=== PATIENT | male | born 1960 | race Caucasian/White ===

== ENCOUNTER → 2021-09-01 10:17 | Outpatient (BNVA) | payer BC, SELFPAY | PROVIDERS: PCP Internal Medicine; Visit Provider Urology ==

== ENCOUNTER → 2022-07-07 13:46 | Outpatient (BNVA) | payer SELFPAY | PROVIDERS: PCP Internal Medicine; Visit Provider Urology | DX: Z13.89 Encounter for screening for other disorder (principal) ==

== ENCOUNTER 2023-01-04 11:37 | Outpatient (REF) | payer OTHER, SELFPAY | END 2023-01-04 11:38 | disposition home or self-care (01) | LOC: HO.LAB 11:37 | PROVIDERS: PCP Internal Medicine; Visit Provider Urology | DX: Z12.5 Encounter for screening for malignant neoplasm of prostate (principal); R97.20 Elevated prostate specific antigen [PSA] | CPT/HCPCS: 36415; 84153 ==

== ENCOUNTER 2023-01-17 11:17 | Outpatient (AMB) | payer MEDICARE, SELFPAY ==
--- NOTE | 2023-01-17 11:33 | MHC.OFFVIS ---
Intake Intake Visit Reasons: 6M PSA(set) Intake Note: Patient is present for Follow Up PSA Urology Med: Finasteride, Sildenfil Antibiotic Allergy: Sulfa antibiotics Blood Thinner: None Allergies Sulfa Allergy (Unknown, Uncoded 01/17/23 11:34) Unknown Medication List - Last Reconciled 01/17/23 by Dominick Jean-Baptiste MD finasteride 5 mg PO .QOD 90 days metoprolol succinate ER mg PO sildenafil 100 mg PO ONCE PRN 30 days HPI HPI Comments History of Present Illness Details Nitesh CASTAÑEDA is a very pleasant male. He is a patient of Dr Willoughby. They are seen in the office today for the following urologic conditions. - elevated PSA - erectile dysfunction Great response to finasteride PSA fell significantly from 4.9-1.7 Cut back to every other day Repeat PSA in 6 months Refill sildenafil prescription Elevated PSA PSA 4.1 PSA 07/24 4.1, 12/22 4.1, free 30%, 06/23 4.9, 01/22 1.7 Family history of BPH Minimal urinary symptoms MANUEL normal 2+ Repeat PSA confirms lab reading and high end of normal. Stable past 6 months Microscopic Hematuria:? Full evaluation 2020 ?Cytology in imaging normal ?Cystoscopy with prominent median bar. Discussed prostate symptomatolog ? Microscopic hematuria was diagnosed during?routine UA.? They are here for the?discussion of imaging findings.? Since the last visit the patient has?has not noticed gross hematuria, does not test positive for microscopic hematuria.? Relevant medical history for?no pertinent medical history, no workplace exposures, UTI's, tobacco use.? Radiographic imaging:?US renal normal with PCP.? Other investigations?04/20 cytology, normal.? Cystoscopy findings?09/19 , normal - high median bar.? [facility] Medical History Erectile dysfunction HTN (hypertension) Microscopic hematuria Thyroid nodule Review of Systems Const Denies chills and Denies fever(s) Card Reports no additional complaints and Denies syncope Resp Denies cough GI Denies abdominal pain and Denies heartburn Reports as per HPI and Denies change in libido Neuro Denies syncope Psych Denies change in libido Endo Denies change in libido Physical Exam Const General: cooperative, healthy appearing, comfortable and no acute distress Orientation/consciousness: patient oriented x3 HEENT Face and sinus: Yes normal facial exam Mouth: moist mucous membranes Neck Neck: Yes normal visual inspection, Yes full ROM and Yes trachea midline Chest Chest palpation & inspection: normal inspection of the chest Resp Effort & Inspection: normal respiratory effort, able to speak in complete sentences and no respiratory distress GI Inspection: Yes normal to inspection Back/Spine/Pelvis Cervical Spine: normal cervical lordosis Thoracic/Lumbar Spine: thoracic and lumbar spine normal to inspection Skin General skin exam: no rashes or lesions noted Neuro General: patient oriented x3, gait normal, tone normal and moves all extremities Extrem General: Yes normal to inspection and Yes capillary refill normal Assessment & Plan Assessment & Plan (1) Erectile dysfunction: Code(s): N52.9 - Male erectile dysfunction, unspecified (2) Elevated PSA: Code(s): R97.20 - Elevated prostate specific antigen [PSA] Plan Six month follow-up PSA Orders: Orders Prostate Specific Antigen 6 Months R97.20 - Elevated prostate specific antigen [PSA] Patient Instructions: Imaging studies, laboratory and physical exam results were discussed and reviewed in detail. No major barriers to patient understanding were identified. An opportunity to ask questions regarding the treatment plan was provided. All questions were answered. The patient expressed understanding and agreement with the above treatment plan. The patient is aware they should contact our office by phone for worsening of their current condition or the appearance of new urologic symptoms. Compliance is encouraged with any medications and followup testing that is ordered. It is a privilege to participate in the urologic care of your patient. If you have any questions or concerns regarding treatment for the above conditions, or other urologic issues, please do not hesitate to contact me. The office telephone contact is [phone]. This note is constructed using voice recognition software. While every effort has been made to ensure accuracy personal development coach errors may have been included. Yours sincerely, Dr Dominick Jean-Baptiste MD, [facility] - Urology Providers of Expert, Compassionate Care for the Genitourinary System Coding Level of Care Code Est Pt Level 3 (69049) Diagnoses Erectile dysfunction N52.9 Elevated PSA R97.20
== END 2023-01-17 12:07 | disposition home or self-care (01) ==
PROVIDERS: Visit Provider Urology
DX: N52.9 Male erectile dysfunction, unspecified (principal); R97.20 Elevated prostate specific antigen [PSA]
CPT/HCPCS: 99213

== ENCOUNTER → 2023-01-17 11:17 | Outpatient (BNVA) | payer MEDICARE, SELFPAY | PROVIDERS: Visit Provider Urology | DX: N52.9 Male erectile dysfunction, unspecified (principal); R97.20 Elevated prostate specific antigen [PSA] | CPT/HCPCS: 99212 ==

== ENCOUNTER 2023-07-20 08:18 | Outpatient (AMB) | payer MEDICARE, SELFPAY ==
--- NOTE | 2023-07-20 08:23 | MHC.OFFVIS ---
Intake Intake Visit Reasons: 6M PSA(set) Intake Note: Patient is Present for Follow Up PSA Urology Medication: Finasteride, Sildenafil (Patient states he needs refill on both medications) Antibiotic Allergies: None Blood Thinners: None Allergies Sulfa Allergy (Unknown, Uncoded 07/20/23 08:26) Unknown Medication List - Last Reconciled 07/20/23 by Dominick Jean-Baptiste MD finasteride 5 mg PO .QOD 90 days metoprolol succinate ER mg PO sildenafil 100 mg PO ONCE PRN 30 days HPI HPI Comments History of Present Illness Details Nitesh CASTAÑEDA is a very pleasant male. He is a patient of Dr Willoughby. They are seen in the office today for the following urologic conditions. - elevated PSA - erectile dysfunction Follow-up on every other day finasteride Slight PSA rise from 1.7-2.5 Continue to follow Continued response to sildenafil Elevated PSA PSA 4.1 PSA 07/24 4.1, 12/22 4.1, free 30%, 06/23 4.9, 01/22 1.7, 06/24 2.5 Family history of BPH Minimal urinary symptoms MANUEL normal 2+ Repeat PSA confirms lab reading and high end of normal. Stable past 6 months Erectile dysfunction Uses demand sildenafil Microscopic Hematuria:? Full evaluation 2020 ?Cytology in imaging normal ?Cystoscopy with prominent median bar. Discussed prostate symptomatolog ? Microscopic hematuria was diagnosed during?routine UA.? They are here for the?discussion of imaging findings.? Since the last visit the patient has?has not noticed gross hematuria, does not test positive for microscopic hematuria.? Relevant medical history for?no pertinent medical history, no workplace exposures, UTI's, tobacco use.? Radiographic imaging:?US renal normal with PCP.? Other investigations?04/20 cytology, normal.? Cystoscopy findings?09/19 , normal - high median bar.? PFSH Medical History Thyroid nodule HTN (hypertension) Erectile dysfunction Microscopic hematuria Assessment & Plan Assessment & Plan (1) Elevated PSA: Code(s): R97.20 - Elevated prostate specific antigen [PSA] (2) Erectile dysfunction: Code(s): N52.9 - Male erectile dysfunction, unspecified Plan Six-month follow-up Orders: Orders Prostate Specific Antigen 6 Months R97.20 - Elevated prostate specific antigen [PSA] Patient Instructions: Imaging studies, laboratory and physical exam results were discussed and reviewed in detail. No major barriers to patient understanding were identified. An opportunity to ask questions regarding the treatment plan was provided. All questions were answered. The patient expressed understanding and agreement with the above treatment plan. The patient is aware they should contact our office by phone for worsening of their current condition or the appearance of new urologic symptoms. Compliance is encouraged with any medications and followup testing that is ordered. It is a privilege to participate in the urologic care of your patient. If you have any questions or concerns regarding treatment for the above conditions, or other urologic issues, please do not hesitate to contact me. The office telephone contact is [phone]. This note is constructed using voice recognition software. While every effort has been made to ensure accuracy priming powder premix blender errors may have been included. Yours sincerely, Dr Dominick Jean-Baptiste MD, [facility] - Urology Providers of Expert, Compassionate Care for the Genitourinary System Coding Level of Care Code Est Pt Level 3 (05645) Diagnoses Elevated PSA R97.20 Erectile dysfunction N52.9
== END 2023-07-20 09:00 | disposition home or self-care (01) ==
PROVIDERS: PCP Internal Medicine; Visit Provider Urology
DX: R97.20 Elevated prostate specific antigen [PSA] (principal); N52.9 Male erectile dysfunction, unspecified
CPT/HCPCS: 99213

== ENCOUNTER → 2023-07-20 08:18 | Outpatient (BNVA) | payer MEDICARE, SELFPAY | PROVIDERS: PCP Internal Medicine; Visit Provider Urology | DX: R97.20 Elevated prostate specific antigen [PSA] (principal); N52.9 Male erectile dysfunction, unspecified | CPT/HCPCS: 99212 ==

== ENCOUNTER 2024-01-18 08:47 | Outpatient (AMB) | payer MEDICARE, SELFPAY ==
--- NOTE | 2024-01-18 08:48 | MHC.OFFVIS ---
Intake Visit Reasons: 6M PSA(set) Stitch Bonding Machine Drawer In Required: No Allergies Sulfa Allergy (Unknown, Uncoded 01/18/24 08:48) Unknown Medication List - Last Reconciled 01/18/24 by Dominick Jean-Baptiste MD finasteride 5 mg PO .QOD 90 days metoprolol succinate ER mg PO sildenafil 100 mg PO ONCE PRN 30 days HPI Comments Details: Nitesh CASTAÑEDA is a very pleasant male. He is a patient of Dr Willoughby. They are seen in the office today for the following urologic conditions. - elevated PSA - erectile dysfunction Telemedicine Evaluation 15 min Consultation Ensequence Florecita Video Follow-up on every other day finasteride PSA remains in range Continue to follow Continued response to sildenafil - discuss increased dosing required Updated family history since father had prostate cancer Elevated PSA PSA 07/24 4.1, 12/22 4.1, free 30%, 06/23 4.9, 01/22 1.7, 06/24 2.5. 12/24 2.9 Family history of BPH Minimal urinary symptoms - effective stream, nocturia 1-2x MANUEL normal 2+ Repeat PSA confirms lab reading and high end of normal. Stable past 6 months Erectile dysfunction Uses on demand sildenafil Microscopic Hematuria:? Full evaluation 2019 ?Cytology in imaging normal ?Cystoscopy with prominent median bar. ? Microscopic hematuria was diagnosed during?routine UA.? They are here for the?discussion of imaging findings.? Since the last visit the patient has?has not noticed gross hematuria, does not test positive for microscopic hematuria.? Relevant medical history for?no pertinent medical history, no workplace exposures, UTI's, tobacco use.? Radiographic imaging:?US renal normal with PCP.? Other investigations?04/20 cytology, normal.? Cystoscopy findings?09/19 , normal - high median bar FHX - father prostate with prostate cancer 71 PFSH Medical History Thyroid nodule HTN (hypertension) Erectile dysfunction Microscopic hematuria Review of Systems Const Denies chills and Denies fever(s) Card Reports no additional complaints and Denies syncope Resp Denies cough GI Denies abdominal pain and Denies heartburn Reports as per HPI and Denies change in libido Neuro Denies syncope Psych Denies change in libido Endo Denies change in libido Physical Exam Const General: cooperative, healthy appearing, comfortable and no acute distress Orientation/consciousness: patient oriented x3 HEENT Face and sinus: Yes normal facial exam Mouth: moist mucous membranes Neck Neck: Yes normal visual inspection, Yes full ROM and Yes trachea midline Chest Chest palpation & inspection: normal inspection of the chest Resp Effort & Inspection: normal respiratory effort, able to speak in complete sentences and no respiratory distress GI Inspection: Yes normal to inspection Back/Spine/Pelvis Cervical Spine: normal cervical lordosis Thoracic/Lumbar Spine: thoracic and lumbar spine normal to inspection Skin General skin exam: no rashes or lesions noted Neuro General: patient oriented x3, gait normal, tone normal and moves all extremities Extrem General: Yes normal to inspection and Yes capillary refill normal Telehealth Telehealth Telehealth Platform: Ensequence Location of provider rendering services: practice address Location of patient: address on file Patient Identification confirmed using: Name, : Yes Telehealth method: video Patient verbally consented to treatment: Yes Patient verbally consented to billing insurance company: Yes Patient informed of any privacy concerns related to visit: Yes Minutes spent on Phone/Video with Pt.: 15 Assessment & Plan Assessment & Plan (1) Erectile dysfunction: Code(s): N52.9 - Male erectile dysfunction, unspecified Category: Medical (2) Elevated PSA: Code(s): R97.20 - Elevated prostate specific antigen [PSA] Category: Medical Plan Six-month follow-up PSA Refill Orders: Orders Prostate Specific Antigen 6 Months R97.20 - Elevated prostate specific antigen [PSA] Medications: Refilled finasteride Take Monday, Monday, Monday 5 mg PO .QOD 90 days 45 tabs 1RF N13.8 - Other obstructive and reflux uropathy, N40.1 - Benign prostatic hyperplasia with lower urinary tract symptoms, R97.20 - Elevated prostate specific antigen [PSA] sildenafil 100 mg PO ONCE 30 days PRN 30 tabs 1RF sexual activity R97.20 - Elevated prostate specific antigen [PSA] Patient Instructions: Imaging studies, laboratory and physical exam results were discussed and reviewed in detail. No major barriers to patient understanding were identified. An opportunity to ask questions regarding the treatment plan was provided. All questions were answered. The patient expressed understanding and agreement with the above treatment plan. The patient is aware they should contact our office by phone for worsening of their current condition or the appearance of new urologic symptoms. Compliance is encouraged with any medications and followup testing that is ordered. It is a privilege to participate in the urologic care of your patient. If you have any questions or concerns regarding treatment for the above conditions, or other urologic issues, please do not hesitate to contact me. The office telephone contact is [phone]. This note is constructed using voice recognition software. While every effort has been made to ensure accuracy registered nurse maternity errors may have been included. Yours sincerely, Dr Dominick Jean-Baptiste MD, [facility] - Urology Providers of Expert, Compassionate Care for the Genitourinary System Coding Level of Care Code Tele Est Pt Level 3 (13976) Diagnoses Erectile dysfunction N52.9 Elevated PSA R97.20
== END 2024-01-18 09:09 | disposition home or self-care (01) ==
LOC: HO.HUSH 08:47
PROVIDERS: PCP Internal Medicine; Visit Provider Urology
DX: N52.9 Male erectile dysfunction, unspecified (principal); R97.20 Elevated prostate specific antigen [PSA]
CPT/HCPCS: 99213

== ENCOUNTER → 2024-01-18 08:47 | Outpatient (BNVA) | payer MEDICARE, SELFPAY | PROVIDERS: PCP Internal Medicine; Visit Provider Urology ==

== ENCOUNTER 2024-07-19 09:18 | Outpatient (AMB) | payer MEDICARE, OTHER, SELFPAY ==
--- NOTE | 2024-07-19 09:21 | A.OFFVIS_ITS ---
Intake Visit Reasons: 6m/PSA(set) Intake Note: Patient is present for 6M/PSA Urology Medication:FINASTERIDE,SLIDENAFIL Antibiotic Allergy:SULFA Blood Thinner:NONE Customer Loyalty Representative Required: No Allergies Sulfa Allergy (Unknown, Uncoded 07/19/24 09:21) Unknown HPI Comments Details: Nitesh CASTAÑEDA is a very pleasant male. He is a patient of Dr Willoughby. They are seen in the office today for the following urologic conditions. - elevated PSA - erectile dysfunction Six-month follow-up Follow-up on every other day finasteride PSA remains in range Continue to follow Continued response to sildenafil - discuss increased dosing required Updated family history since father had prostate cancer Elevated PSA PSA 07/24 4.1, 12/22 4.1, free 30%, 06/23 4.9, 01/22 1.7, 06/24 2.5. 12/24 2.9, 07/27 3.4 Family history of BPH Minimal urinary symptoms - effective stream, nocturia 1-2x MANUEL normal 2+ Repeat PSA confirms lab reading and high end of normal. Stable past 6 months Erectile dysfunction Uses on demand sildenafil Microscopic Hematuria:? Full evaluation 2019 ?Cytology in imaging normal ?Cystoscopy with prominent median bar. ? Microscopic hematuria was diagnosed during?routine UA.? They are here for the?discussion of imaging findings.? Since the last visit the patient has?has not noticed gross hematuria, does not test positive for microscopic hematuria.? Relevant medical history for?no pertinent medical history, no workplace exposures, UTI's, tobacco use.? Radiographic imaging:?US renal normal with PCP.? Other investigations?04/20 cytology, normal.? Cystoscopy findings?09/19 , normal - high median bar FHX - father prostate with prostate cancer 71 PFSH Medical History Thyroid nodule HTN (hypertension) Erectile dysfunction Microscopic hematuria Review of Systems Const Denies chills and Denies fever(s) Card Reports no additional complaints and Denies syncope Resp Denies cough GI Denies abdominal pain and Denies heartburn Reports as per HPI and Denies change in libido Neuro Denies syncope Psych Denies change in libido Endo Denies change in libido Physical Exam Const General: cooperative, healthy appearing, comfortable and no acute distress Orientation/consciousness: patient oriented x3 HEENT Face and sinus: Yes normal facial exam Mouth: moist mucous membranes Neck Neck: Yes normal visual inspection, Yes full ROM and Yes trachea midline Chest Chest palpation & inspection: normal inspection of the chest Resp Effort & Inspection: normal respiratory effort, able to speak in complete sentences and no respiratory distress GI Inspection: Yes normal to inspection Back/Spine/Pelvis Cervical Spine: normal cervical lordosis Thoracic/Lumbar Spine: thoracic and lumbar spine normal to inspection Skin General skin exam: no rashes or lesions noted Neuro General: patient oriented x3, gait normal, tone normal and moves all extremities Extrem General: Yes normal to inspection and Yes capillary refill normal Assessment & Plan Assessment & Plan (1) Erectile dysfunction: Code(s): N52.9 - Male erectile dysfunction, unspecified Category: Medical (2) Elevated PSA: Code(s): R97.20 - Elevated prostate specific antigen [PSA] Category: Medical Plan PSA six-month Orders: Orders Prostate Specific Antigen 6 Months R97.20 - Elevated prostate specific antigen [PSA] Patient Instructions: Imaging studies, laboratory and physical exam results were discussed and reviewed in detail. No major barriers to patient understanding were identified. An opportunity to ask questions regarding the treatment plan was provided. All questions were answered. The patient expressed understanding and agreement with the above treatment plan. The patient is aware they should contact our office by phone for worsening of their current condition or the appearance of new urologic symptoms. Compliance is encouraged with any medications and followup testing that is ordered. It is a privilege to participate in the urologic care of your patient. If you have any questions or concerns regarding treatment for the above conditions, or other urologic issues, please do not hesitate to contact me. The office telephone contact is [phone]. This note is constructed using voice recognition software. While every effort has been made to ensure accuracy word processing operator errors may have been included. Yours sincerely, Dr Dominick Jean-Baptiste MD, [facility] - Urology Providers of Expert, Compassionate Care for the Genitourinary System Coding Level of Care Code Est Pt Level 3 (03982) Diagnoses Erectile dysfunction N52.9 Elevated PSA R97.20
== END 2024-07-19 10:31 | disposition home or self-care (01) ==
PROVIDERS: PCP Internal Medicine; Visit Provider Urology
DX: N52.9 Male erectile dysfunction, unspecified (principal); R97.20 Elevated prostate specific antigen [PSA]
CPT/HCPCS: 99213

== ENCOUNTER → 2024-07-19 09:18 | Outpatient (BNVA) | payer MEDICARE, OTHER, SELFPAY | PROVIDERS: PCP Internal Medicine; Visit Provider Urology | DX: N52.9 Male erectile dysfunction, unspecified (principal); R97.20 Elevated prostate specific antigen [PSA] | CPT/HCPCS: 99212 ==

== ENCOUNTER 2025-01-15 13:30 | Outpatient (AMB) | payer MEDICARE, SELFPAY ==
--- NOTE | 2025-01-15 13:31 | MHC.OFFVIS ---
Intake Visit Reasons: 6m/PSA(psa?) Intake Note: Patient is present for 6M/PSA Urology Medication:FINASTERIDE,SILDENAFIL Antibiotic Allergy:SULF Blood Thinner:NONE Railroad Mechanic Required: No Allergies Sulfa Allergy (Unknown, Uncoded 01/15/25 13:32) Unknown HPI Comments Details: Nitesh CASTAÑEDA is a very pleasant male. He is a patient of Dr Willoughby. They are seen in the office today for the following urologic conditions. - elevated PSA - erectile dysfunction Telemedicine Evaluation 15 min Consultation [employer] Six-month follow-up PSA has slid up after reduction and finasteride from 3 times a week to 2 times a week He would like to go back on 2 times a week Will repeat in six-month with bladder ultrasound Continued response to sildenafil - discuss increased dosing required Reiterated the importance of adequate sleep for erectile performance Updated family history since father had prostate cancer Elevated PSA PSA 07/24 4.1, 12/22 4.1, free 30%, 06/23 4.9, 01/22 1.7, 06/24 2.5. 12/24 2.9, 07/27 3.4, 12/25 4.1 Family history of BPH Minimal urinary symptoms - effective stream, nocturia 1-2x MANUEL normal 2+ Repeat PSA confirms lab reading and high end of normal. Stable past 6 months Erectile dysfunction Uses on demand sildenafil Microscopic Hematuria:? Full evaluation 2019 ?Cytology in imaging normal ?Cystoscopy with prominent median bar. ? Microscopic hematuria was diagnosed during?routine UA.? They are here for the?discussion of imaging findings.? Since the last visit the patient has?has not noticed gross hematuria, does not test positive for microscopic hematuria.? Relevant medical history for?no pertinent medical history, no workplace exposures, UTI's, tobacco use.? Radiographic imaging:?US renal normal with PCP.? Other investigations?04/20 cytology, normal.? Cystoscopy findings?09/19 , normal - high median bar FHX - father prostate with prostate cancer 71 PFSH Medical History Thyroid nodule HTN (hypertension) Erectile dysfunction Microscopic hematuria Review of Systems Const All systems reviewed & are unremarkable except as noted in HPI and below Denies chills and Denies fever(s) Card Reports no additional complaints and Denies syncope Resp Denies cough GI Denies abdominal pain and Denies heartburn Reports as per HPI and Denies change in libido Musc Reports no additional complaints Neuro Denies syncope Psych Denies change in libido Endo Denies change in libido Physical Exam Telemedicine evaluation Appropriate responses Regular breathing rate and rhythm Const General: cooperative, healthy appearing, comfortable and no acute distress Orientation/consciousness: patient oriented x3 HEENT Head: Yes normal to inspection Ears: hearing grossly normal bilaterally Face and sinus: Yes normal facial exam Mouth: moist mucous membranes Eyes General: appearance normal, both eyes and all related structures Neck Neck: Yes normal visual inspection, Yes full ROM and Yes trachea midline Chest Chest palpation & inspection: normal inspection of the chest Resp Effort & Inspection: normal respiratory effort, able to speak in complete sentences and no respiratory distress GI Inspection: Yes normal to inspection Back/Spine/Pelvis Cervical Spine: normal cervical lordosis Thoracic/Lumbar Spine: thoracic and lumbar spine normal to inspection Skin General skin exam: no rashes or lesions noted Neuro General: patient oriented x3, gait normal, tone normal and moves all extremities Extrem General: Yes normal to inspection and Yes capillary refill normal Telehealth Telehealth Location of provider rendering services: practice address Location of patient: address on file Patient Identification confirmed using: Name, : Yes Telehealth method: voice only Patient verbally consented to treatment: Yes Patient verbally consented to billing insurance company: Yes Patient informed of any privacy concerns related to visit: Yes Assessment & Plan Assessment & Plan (1) Elevated PSA: Code(s): R97.20 - Elevated prostate specific antigen [PSA] Category: Medical (2) Erectile dysfunction: Code(s): N52.9 - Male erectile dysfunction, unspecified Category: Medical Plan Six-month follow-up PSA and bladder imaging Orders: Orders US bladder 6 Months R39.12 - Poor urinary stream, R97.20 - Elevated prostate specific antigen [PSA] PSA,Total (Free>4and<10) 6 Months R97.20 - Elevated prostate specific antigen [PSA] Medications: Refilled sildenafil 100 mg PO ONCE PRN 30 tabs 1RF sexual activity 30 days R97.20 - Elevated prostate specific antigen [PSA] Patient Instructions: This note is constructed using voice recognition software. While every effort has been made to ensure accuracy associate professor physician errors may have been included. Imaging studies, laboratory and physical exam results were discussed and reviewed in detail. No major barriers to patient understanding were identified. An opportunity to ask questions regarding the treatment plan was provided. All questions were answered. The patient expressed understanding and agreement with the above treatment plan. The patient is aware they should contact our office by phone for worsening of their current condition or the appearance of new urologic symptoms. Compliance is encouraged with any medications and followup testing that is ordered. It is a privilege to participate in the urologic care of your patient. If you have any questions or concerns regarding treatment for the above conditions, or other urologic issues, please do not hesitate to contact me. The office telephone contact is [phone]. Sincerely, Dr Dominick Jean-Baptiste MD, [facility] - Urology Compassionate Specialist Care for the Genitourinary System Coding Level of Care Code Tele Est Pt Level 3 (32416) Complex EM visit Add On G2211 Diagnoses Elevated PSA R97.20 Erectile dysfunction N52.9
--- OUTSIDE RECORDS SUMMARY | 2025-01-15 14:19 | XMS_ITS | Clinical Summary ---
Author Organization [facility] Address [address] [place] [address] Care Team Providers Care Transportation Driver Name Role Phone Unavailable Primary Care Provider Unavailabl e Social History Tobacco Use Types Packs/Day Years Used Date Smoking Tobacco: Never Assessed Sex and Gender Information Value Date Recorded Sex Assigned at Not on file Gender Identity Not on file Sexual Orientation Not on file Plan of Treatment Not on file
--- OUTSIDE RECORDS SUMMARY | 2025-01-15 14:20 | XMS_ITS ---
Author Name [facility] Organization Unknown Care Team Organization Name Specialty Phone Email Start Date End Da te [facility] 025 [facility] ADT 12/14/19 25 [facility] 025 12/04/2024
--- OUTSIDE RECORDS SUMMARY | 2025-01-15 14:20 | XMS_ITS | Clinical Summary ---
Author Organization [facility] Address [address] [place] [address] Phone Care Team Providers Care Beater Lead Name Role Phone China Bravo Primary Care Provider Allergies Active Allergy Reactions Criticality Noted Date Comments Amlodipine 11/12/2024 Sulfa (Sulfonamide Antibiotics) 10/31 Medications finasteride (PROSCAR) 5 mg tablet Take 1 tablet (5 mg total) by mouth 1 (one) time each day. Do not crush, chew, or split. Active sildenafiL (VIAGRA) 50 mg tablet Take 1 tablet (50 mg total) by mouth 1 (one) time each day if needed for erectile dysfunction. Active multivitamin tablet Take 1 tablet by mouth 1 (one) time each day. Active valsartan-hydro CHLOROthiazide (DIOVAN-HCT) 80-12.5 mg per tablet Take 1 tablet by mouth 1 (one) time each day. Active metoprolol tartrate (LOPRESSOR) 100 mg tablet Take 1 tablet (100 mg total) by mouth 2 (two) times a day. Active Encounters Date Type Department Care Team Description 11/11/2024 Telephone Gastroenterology - 299 [facility] [address] [address] Sudhakar Traylor MD special procedure from Last 3 Months Social History Tobacco Use Types Packs/Day Years Used Date Smoking Tobacco: Never Assessed Sex and Gender Information Value Date Recorded Sex Assigned at Male 11/11/2024 4:12 PM EDT Legal Sex Male 4:10 PM EDT Gender Identity Male 11/11/2024 4:12 PM EDT Sexual Orientation Not on file Plan of Treatment Upcoming Encounters Date Type Department Care Team ([facility] st Contact Info) Description 02/25/2025 8:00 AM EDT Appointment [facility] Endoscopy [address] [place] [address] Ruslan Loera MD 299 [facility] [address] [place] [address] Health Maintenance Due Date Last Done Comments DTaP,Tdap,and Td Vaccines (1 - Tdap) 1977 Pneumococcal Vaccine: 50+ Ye ars (1 of 1 - PCV) 01/21/2008 Zoster Vaccines (1 of 2) 01/21/2008 COVID-19 Vaccine (1 - 2023-2 5 season) 2024 Abdominal Aortic Aneurysm (A AA) Screen 11/12/2024 Cholesterol Screening (Lipid Panel) 11/12/2024 Colorectal Cancer Screening: Colonoscopy 11/12/2024 Depression Screening 11/12/2024 Falls Risk Assessment 11/12/2024 Hepatitis C Screening 11/12/2024 Medicare Annual Wellness Visit 11/12/2024 Social Influencers of Health Screening 11/12/2024 Influenza Vaccine (#1) 2025 RSV Immunization Adult Patie nts (1 - 1-dose 75+ series) 2033 HIB Vaccines Aged Out No longer eligi ble based on patient's age to complete this topic HPV Vaccines Aged Out No longer eligi ble based on patient's age to complete this topic Hepatitis A Vaccines Aged Out No long er eligible based on patient's age to complete this topic Hepatitis B Vaccines Aged Out No long er eligible based on patient's age to complete this topic IPV Vaccines Aged Out No longer eligi ble based on patient's age to complete this topic MMR Vaccines Aged Out No longer eligi ble based on patient's age to complete this topic Meningococcal ACWY Vaccine Aged Out N o longer eligible based on patient's age to complete this topic Meningococcal B Vaccine Aged Out No l onger eligible based on patient's age to complete this topic RSV Immunization Patients Un ivone 20 months Aged Out No longer eligible b ased on patient's age to complete this topic Varicella Vaccines Aged Out No longer eligible based on patient's age to complete this topic Insurance [employer] MEDICARE ADVANTAGE Care Teams Beater Lead Relationship Specialty Start Date End Date China Bravo PA [address] [place] [address] [place] [id number] PCP - General Physician Quiller Runner 11/11/24
== END 2025-01-15 14:49 | disposition home or self-care (01) ==
LOC: HO.HUSH 13:30
PROVIDERS: PCP Internal Medicine; Visit Provider Urology
DX: R97.20 Elevated prostate specific antigen [PSA] (principal); N52.9 Male erectile dysfunction, unspecified
CPT/HCPCS: 99213; G2211